=== PATIENT | female | born 1965 | race Caucasian/White ===

== ENCOUNTER 2017-09-19 08:17 | Day surgery (SDC) | payer MEDICAID ==
[~2017-09-19 08:17] MED LIST: Lactated Ringers 1,000 ML IV SCH; Sodium Chloride 0.9% 10 ML Syringe FLUSH PRN; Sodium Chloride 0.9% 2.5 ML Syringe FLUSH PRN
[2017-09-19] MEDS ORDERED: Lidocaine 2% 5 ML SDV ONE (08:26)
[2017-09-19] MEDS ORDERED: Propofol 200 MG/20 ML SDV ONE ×2 (08:26→11:07)
--- NOTE | 2017-09-19 09:24 | PCM.PREANE ---
Preanesthetic Assessment - Procedure Proposed Procedure: Colonoscopy - Anesthesia/Transfusion/Family Hx Anesthesia History: Prior Anesthesia Without Reaction Family History of Anesthesia Reaction: No Transfusion History: No Prior Transfusion(s) Intubation History: Unknown - Review of Systems General: Other (rectal bleeding, change in bowel habits; weight loss) Pulmonary: Other (smoker using inhaler bronchodilator; emphysema/asthma) Cardiovascular: No Symptoms Gastrointestinal: Other (GERD on meds) Neurological: No Symptoms - Physical Assessment NPO Status Date: 09/18/17 NPO Status Time: 22:00 O2 Sat by Pulse Oximetry: 97 Respiratory Rate: 16 Vital Signs: Last Vital Signs Temp 98.1 F 09/19/17 08:43 Pulse 92 09/19/17 08:43 Resp 16 09/19/17 08:43 BP 154/88 H 09/19/17 08:43 Pulse Ox 97 09/19/17 08:43 Height: 5 ft 2 in Weight: 93 lb ASA Class: 3 Mental Status: Alert & Oriented x3 Airway Class: Mallampati = 1 Dentition: Reports: Normal Dentition Thyro-Mental Finger Breadths: 3 Mouth Opening Finger Breadths: 3 ROM/Head Extension: Full Lungs: Decreased Breath Sounds (left side with breath sounds after several coughs), Wheezing (on left) Cardiovascular: Regular Rate, Regular Rhythm, No Murmurs Other: cough sounds productive - Allergies Allergies/Adverse Reactions: Allergies Allergy/AdvReac Type Severity Reaction Status Date / Time No Known Allergies Allergy Verified 09/12/17 11:58 - Blood Blood Available: No Product(s) Available: None - Anesthesia Plan Free Text/Narrative:: preop duoneb treatment - Acknowledgements Anesthesia Type Planned: MAC Pt an Appropriate Candidate for the Planned Anesthesia: Yes Alternatives and Risks of Anesthesia Discussed w Pt/Guardian: Yes Pt/Guardian Understands and Agrees with Anesthesia Plan: Yes PreAnesthesia Questionnaire HEENT History: Reports: Other (See Below) Other HEENT History: wears glasses Cardiovascular History: Reports: Arrhythmia Respiratory History: Reports: COPD Gastrointestinal History: Reports: Hemorrhoids, Helicobacter Pylori, Other (See Below) Other Gastrointestinal History: occasional heartburn, hx hpylori, hemorrhoids Genitourinary History: Reports: None - Past Surgical History Head Surgeries/Procedures: Reports: None Cardiovascular Surgical History: Reports: Cardiac Ablation Other Cardiovascular Surgeries/Procedures: "heart surgery to correct arrhythmia " GI Surgical History: Reports: Colonoscopy Female Surgical History: Reports: Hysterectomy, Salpingo-Oophorectomy - SUBSTANCE USE Smoking Status *Q: Current Every Day Smoker Tobacco Use Within Last Twelve Months: Cigarettes Recreational Drug Use History: No - HOME MEDS Home Medications: Home Meds Albuterol [Ventolin HFA] 1 - 2 puff INH ASDIRECTED PRN 09/12/17 [History] Fluticasone/Salmeterol [Advair 250-50 Diskus] 1 - 2 inhalation INH ASDIRECTED PRN 09/12/17 [History] Lidocaine 0.5% [Xylocaine-MPF 0.5%] 1 applic RECTAL ASDIRECTED PRN 09/12/17 [ History] Omeprazole 20 mg PO ASDIRECTED PRN 09/12/17 [History] - CURRENT (IN HOUSE) MEDS Current Meds: Current Medications Lactated Ringer's (Ringers, Lactated) 1,000 mls @ 125 mls/hr IV ASDIRECTED SHAHZAD Last Admin: 09/19/17 08:44 Dose: 125 mls/hr Sodium Chloride (Saline Flush) 10 ml FLUSH ASDIRECTED PRN PRN Reason: Keep Vein Open Sodium Chloride (Saline Flush) 2.5 ml FLUSH ASDIRECTED PRN PRN Reason: Keep Vein Open Discontinued Medications Lidocaine (Xylocaine-Mpf 2%) Confirm Administered Dose 5 ml .ROUTE .STK-MED ONE Stop: 09/19/17 08:27 Propofol (Diprivan 20 Ml) Confirm Administered Dose 400 mg .ROUTE .STK-MED ONE Stop: 09/19/17 08:27
[2017-09-19] MEDS ORDERED: Albuterol/Ipratropium 3.0-0.5 MG/3 ML Neb Soln NEB ONE (10:04)
--- NOTE | 2017-09-19 11:28 | PCM.OPNOTE ---
- General Post-Op/Procedure Note Date of Surgery/Procedure: 09/19/17 Operative Procedure(s): Diagnostic EGD and colonoscopy Findings: Hiatal hernia, Grade 3 hemorrhoids, 3 small rectal polyps Pre Op Diagnosis: Hematochezia Post-Op Diagnosis: Hiatal hernia, grade 3 hemorrhoids, rectal polyp x 3 Anesthesia Technique: [employer] [employer] Primary Surgeon: Geno Bhatia Condition: Good
--- NOTE | 2017-09-19 11:38 | PCM.POSTAN ---
POST ANESTHESIA ASSESSMENT - MENTAL STATUS Mental Status: Alert, Oriented - VITAL SIGNS SaO2: 98 (RA) - RESPIRATORY Respiratory Status: Respiratory Rate WNL, Airway Patent, O2 Saturation Stable - CARDIOVASCULAR CV Status: Pulse Rate WNL, Blood Pressure Stable - GASTROINTESTINAL GI Status: No Symptoms - POST OP HYDRATION Hydration Status: Adequate & Stable - OBSERVATIONS Free Text/Narrative:: Doing well s/p procedures
--- NOTE | 2017-09-19 11:52 | PCM48HPAN ---
Post Anesthesia Note - EVALUATION WITHIN 48HRS OF ANESTHETIC Vital Signs in Normal Range: Yes Patient Participated in Evaluation: Yes Respiratory Function Stable: Yes Airway Patent: Yes Cardiovascular Function Stable: Yes Hydration Status Stable: Yes Pain Control Satisfactory: Yes Nausea and Vomiting Control Satisfactory: Yes Mental Status Recovered: Yes - COMMENTS/OBSERVATIONS Free Text/Narrative:: Breathing much better she perceives and our monitoring confirms this.
--- NOTE | 2017-09-19 17:22 | OR ---
SURGEON: GENO BHATIA MD DATE OF PROCEDURE: 09/19/2017 PREOPERATIVE DIAGNOSIS: Hematochezia, weight loss. POSTOPERATIVE DIAGNOSES: 1. Hiatal hernia. 2. Rectal polyps x3. 3. Grade 3 hemorrhoids. PROCEDURE PERFORMED: Diagnostic EGD and colonoscopy. ENDOSCOPIST: Geno Bhatia MD. INSTRUMENT USED: Olympus endoscope and colonoscope. ANESTHESIA: MAC. EXTENT OF EXAM: To the second portion of duodenum, to the cecum. PREPARATION: Good. LIMITATIONS: None. INDICATION FOR EXAMINATION: The patient is a 52-year-old female, who presents with unexpected weight loss, hematochezia and other systemic symptoms. The decision was made to perform a diagnostic EGD and colonoscopy. We discussed the procedure, expected perioperative course, and risks including bleeding, infection, or damage to surrounding structures. The patient verbalized understanding and wishes to proceed. PROCEDURE IN DETAIL: The patient was brought into the endoscopy suite and placed in a beach chair position. A time-out was completed verifying the patient's name, age, date of , allergies, and procedure to be performed. Monitored anesthesia care was induced and a bite block was placed in the patient's mouth. Continuous oxygen was provided via nasal cannula throughout the procedure. After adequate sedation was achieved, a well lubricated endoscope was placed in the patient's mouth and advanced under direct visualization to the level of the second portion of the duodenum. The duodenum appeared normal and a photograph was taken. The scope was then fully withdrawn while examining the color, texture, anatomy, and integrity of the mucosa of the upper GI tract. The duodenal bulb appeared normal. The scope was brought into the stomach and a photograph was taken of the pylorus and GE junction. The patient was noted to have a small hiatal hernia. Biopsies were taken of the gastric antrum, body, and fundus and sent for H. pylori testing. The patient's gastric mucosa appeared normal. The scope was then brought into the distal esophagus and a photograph was taken of the hiatal hernia sac. There was no evidence of ulceration or inflammation in this area. The remainder of the esophageal mucosa was free of pathology. The scope was removed from the patient and this portion of the procedure was terminated. The patient was placed in a left lateral decubitus position. Digital rectal exam was performed. This exam was within normal limits. A well lubricated colonoscope was inserted into the rectum and advanced under direct visualization to the level of the cecum. The cecum was identified by both visual and anatomic landmarks. A photograph was taken of the cecal cap. I was unable to retroflex the scope within the cecum due to looping more proximally. The scope was then fully withdrawn while examining the color, texture, anatomy, and integrity of the mucosa from the cecum to the anal canal. The patient was found to have three small 1 to 2 mm sessile polyps within the rectum. These were removed using a cold biopsy forceps. The scope was then retroflexed within the rectum and then noted an inflamed, enlarged hemorrhoids with no stigmata of recent bleeding. The scope was then straightened out and withdrawn from the patient. I reexamined the anoderm and noted a small anterior prolapsing hemorrhoid. The cecum to anus time is over 6 minutes. The patient tolerated the procedure well and was taken to the PACU in stable condition. ENDOSCOPIC DIAGNOSES: 1. Hiatal hernia. 2. Rectal polyps x3. 3. Grade 3 hemorrhoids. RECOMMENDATIONS: We will start the patient on fiber therapy and prescribe lidocaine cream as needed for discomfort. She should start sitz baths after every bowel movement. She should continue her omeprazole. We will see in clinic in 2 weeks. DONOVAN RICKETTS /[id number]
== END 2017-09-19 11:55 | disposition home or self-care (01) ==
LOC: MW.SDS 08:17
PROVIDERS: ATTEND Surgery
DX: K62.1 Rectal polyp (principal); K64.2 Third degree hemorrhoids; K29.50 Unspecified chronic gastritis without bleeding; K44.9 Diaphragmatic hernia without obstruction or gangrene; R63.4 Abnormal weight loss; F17.200 Nicotine dependence, unspecified, uncomplicated; Z79.899 Other long term (current) drug therapy
CPT/HCPCS: 43239; 45380; 88305; 88312; 94640; J7120; 00740; J2704